=== PATIENT | male | born 1995 | race Caucasian/White ===

== ENCOUNTER 2022-09-29 18:19 | Emergency (ER) | payer SELFPAY ==
[2022-09-29 18:23] VITALS: BP 175/116; PULSE 47; RESP 16; TEMP 37.3; O2SAT 98; BMI 38.6
--- NOTE | 2022-09-29 18:36 | PC.NURSE ---
pt reports he came into ED because he had a panic attack at home. states he ran out of his effexor so he began to drink heavy. pt states he then decided to quit alcohol a couple days ago and now has increased anxiety and lightheadedness. No tremors noted. speech clear. answering questions appropriately. denies hallucinations. denies SI or hx of SI.
--- NOTE | 2022-09-29 18:42 | ED_ITS ---
HPI - Anxiety General: Chief Complaint: Anxiety Stated Complaint: anxiety Time Seen by Provider: 09/29/22 18:22 Source: patient History of Present Illness: 27-year-old male with history of anxiety depression and alcohol use. He quit drinking a couple of days ago. He believes he has had some withdrawal symptoms. He had a panic attack at home earlier, he is somewhat improved currently, but still has significant anxiety MD complaint: anxiety Onset (ago): hour(s) Severity: moderate Place: home History of similar episodes: Yes Associated symptoms: Reports confusion, nausea and palpitations; Deny chest pain, chills, diaphoresis, fever(s), headache(s), short of breath, syncope or vomiting Review of Systems Const: Denies: fever(s), chills or diaphoresis ENMT: Denies: throat pain Card: Reports: palpitations; Denies: chest pain or syncope Resp: Denies: dyspnea GI: Reports: nausea; Denies: vomiting Neuro: Reports: confusion; Denies: headache(s) Psych: Reports: anxiety and depression; Denies: visual hallucinations, auditory hallucinations, suicidal ideation or homicidal ideation Physical Exam Const: COMMON NORMALS: no acute distress GENERAL APPEARANCE: anxious HENMT: COMMON NORMALS: normocephalic, atraumatic and Normal external nose pre sent HEAD & SCALP: normocephalic and atraumatic FACE & SINUS: normal facial exam and face symmetric NOSE: Normal external nose present Eye: COMMON NORMALS: Equal, round and reactive pupils present and EOMs intact bilaterally PUPIL: Yes Equal, round and reactive pupils present Neck/C-Spine: GENERAL: Yes trachea midline Chest: CHEST: Yes Symmetrical chest wall rise Resp: COMMON NORMALS: normal respiratory effort, No retractions, No use of accessory muscles and clear to auscultation bilaterally AUSCULTATION: clear to auscultation bilaterally Cardio: COMMON NORMALS: regular rate and regular rhythm RATE: regular rate RHYTHM: regular rhythm GI: COMMON NORMALS: Normal to inspection, nondistended, normoactive bowel sounds present Extremity: COMMON NORMALS: no pedal edema Neuro: IVONNE COMA SCALE: document GCS findings Ivonne coma scale eye opening: Spontaneous Ivonne coma scale verbal response: Orientated [place] coma scale motor response: Obey commands Ivonne coma scale total score: 15 SENSORY EXAM: Yes extremities (intact) Psych: COMMON NORMALS: mental status grossly normal, Normal thought process present, cooperative, speech normal, denies hallucinations, denies homicidal ideation and denies suicidal ideation SPEECH: Yes normal speech THOUGHT PROCESS: Normal thought process present Skin: COMMON NORMALS: no rashes or lesions noted GENERAL SKIN EXAM: no rashes or lesions noted Course Vital Signs: Vital signs: Vital Signs Temperature 99.1 F 09/29/22 18:23 Pulse Rate 93 09/29/22 21:00 Respiratory Rate 16 09/29/22 21:00 Blood Pressure 144/76 09/29/22 21:00 Pulse Oximetry 95 09/29/22 21:00 Oxygen Delivery Me thod 09/29/22 19:16 MDM - Anxiety Medical Decision Making Patient appears medically stable. Vitals are good. He is not suicidal or homicidal. He is given anxiety medication once improving he will be released, to withdraw at home. He will be given medication for this. Discharge Plan Discharge Patient Disposition: Home Clinical Impression: Acute anxiety, Alcohol withdrawal Condition: Stable Prescriptions: New chlordiazepoxide HCl 25 mg capsule 25 mg PO TID PRN (Reason: alcohol withdrawal) Qty: 14 0RF Rx Instructions: Take 3 times daily x2 days, twice daily x2 days, then once daily x4 days Discharge Orders: Discharge ED (Routine); Ordered 09/29/22 Ordered By: Marcus Guerrero Patient Instructions: Opioid Safety, Pain Management Activity Restrictions/Additional Instructions: Return for worsening symptoms despite treatment, any thoughts or wishes to harm your self or anyone else. Take medication as directed. Coding Level of Care Code ED Chain Link Fence Installer for [place] Fwd Exam Comprehensive
--- NOTE | 2022-09-29 18:56 | ECG_ITS ---
[facility] Test Date: 2022-09-29 Pat Name: Jakub Rosa Department: Room: Gender: Male Global Recruiter: : 1995 Requested By: Marcus Lewis Order Number: [id number] Nelson MD: Adrian Flores M.D. Measurements Intervals [place] Rate: 92 P: 42 ND: 171 QRS: 21 QRSD: 101 T: 31 QT: 345 QTc: 429 Interpretive Statements SINUS RHYTHM No previous ECG available for comparison Electronically Signed On 09-30-2022 12:52:35 CIRCLE SHEAR OPERATOR by Adrian Flores M.D. [id number]
[2022-09-29] MEDS: OLANZapine 10 mg ODT 20 MG PO (19:12)
[2022-09-29 19:16] VITALS: BP 166/114; PULSE 96; RESP 18; O2SAT 99
--- NOTE | 2022-09-29 19:33 | PC.NURSE ---
report given to CASSIE Augustine to assume care
[2022-09-29] MEDS: midazolam 1 mg/mL INJ 2 mL 4 MG IM (19:38)
[2022-09-29 20:30] VITALS: BP 144/76; PULSE 93; RESP 16; O2SAT 95
--- NOTE | 2022-09-29 20:58 | PC.NURSE ---
Patient reports that his anxiety has improved and all other symptoms are gone at this time. Provider notified at this time.
[2022-09-29 21:00] VITALS: BP 144/76; PULSE 93; RESP 16; O2SAT 95
== END 2022-09-29 20:52 | disposition home or self-care (01) ==
PROVIDERS: Emergency Provider Emergency Medicine
DX: F41.9 Anxiety disorder, unspecified (principal); F10.239 Alcohol dependence with withdrawal, unspecified; Y90.9 Presence of alcohol in blood, level not specified
CPT/HCPCS: 93005; 99284; J2250